=== PATIENT | male | born 1970 | race Caucasian/White ===

== ENCOUNTER 2017-04-09 12:29 | Day surgery (SDC) | payer OTHER ==
[~2017-04-09] VITALS: Ht 185.4 cm; Wt 118.8 kg
[~2017-04-09 12:29] MED LIST: CLONIDINE HCL0.1 MG PO; DIVALPROEX SOD500 MG PO; LISINOPRIL10 MG PO; OXAYDO5 MG PO; PRAVACHOL20 MG PO; TRAMADOL HCL50 MG PO; TUMS500 MG PO
[2017-04-09 12:48] VITALS: BP 143/80
[2017-04-09 13:07] LABS: POINT-OF-CARE METER ID UU14174212
[2017-04-09 16:15] VITALS: BP 105/59
[2017-04-09 17:12] VITALS: BP 130/70
== END 2017-04-09 17:28 | disposition home or self-care (01) ==
LOC: SDC 12:29
PROVIDERS: Orthopaedic Surgery Hand Surgery
PROC: 0RBJ4ZZ Excision of Right Shoulder Joint, Percutaneous Endoscopic Approach (ICD-10-PCS; principal; 2017-04-09)
DX: S46.011A Strain of muscle(s) and tendon(s) of the rotator cuff of right shoulder, initial encounter (principal); W20.8XXA Other cause of strike by thrown, projected or falling object, initial encounter; Y92.69 Other specified industrial and construction area as the place of occurrence of the external cause; Y99.0 Civilian activity done for income or pay; M25.811 Other specified joint disorders, right shoulder; I10 Essential (primary) hypertension; K21.9 Gastro-esophageal reflux disease without esophagitis; I25.2 Old myocardial infarction; Z95.5 Presence of coronary angioplasty implant and graft; F17.200 Nicotine dependence, unspecified, uncomplicated
CPT/HCPCS: 82948; C1713; J0171; J0330; J0690; J1100; J1170; J2250; J2405; J2795; J3010